=== PATIENT | female | born 2000 | race Caucasian/White ===

== ENCOUNTER → 2023-08-14 07:45 | Outpatient (CLI) | payer BC, SELFPAY ==
--- NOTE | ~2023-08-14 | US_ITS ---
EXAMINATION: US OB transvaginal DATE: 08/14/2023 09:54 INDICATION: Gestational dating TECHNIQUE: Real-time transvaginal obstetric ultrasound. FINDINGS: No prior studies for comparison. The uterus measures 8.8 x 5.1 x 6.1 cm. There is an intrauterine gestational sac, with pole francoise ntified. The crown rump length measures 1.56 cm, which correlates with a estimated gestational age o f 8 weeks 0 days. heart tones are identified measuring 154 BPM. There is a small subchorionic hemorrhage measuring 5 x 4 x 4 mm. There is a right ovarian cyst measuring 1.5 cm. IMPRESSION: 1. SL IUP with an EGA of 8 weeks, 0 days (EDC by current ultrasound of 03/25/2024). 2: Small subchorionic hemorrhage. Reviewed, dictated and finalized at location B. IMPRESSION: 1. SL IUP with an EGA of 8 weeks, 0 days (EDC by current ultrasound of ). 2: Small subchorionic hemorrhage.
== END ==
PROVIDERS: PCP Registered Nurse; Visit Provider Registered Nurse
DX: Z36.9 Encounter for antenatal screening, unspecified (principal); Z3A.08 8 weeks gestation of pregnancy
CPT/HCPCS: 76817

== ENCOUNTER 2023-09-21 12:33 | Outpatient (CLI) | payer BC, SELFPAY ==
[2023-09-21 13:12] LABS: Hematocrit 39.7 % (37.0-47.0); Hemoglobin 13.7 g/dL (12.0-15.0); Mean Corpuscular HGB Conc 34.5 g/dl (32-36); Mean Corpuscular Hemoglobin 30.4 pg (26-34); Platelet Count Result 178 k/mm3 (150-375); Red Blood Count 4.51 M/mm3 (4.2-5.4); Red Cell Distribution Width 13.4 % (11.5-14.5); White Blood Count 10.7 K/mm3 (4.5-10.0)
[2023-09-21 13:17] LABS: Appearance Urine Cloudy (Clear); Bacteria Urine 4+ /hpf; Bilirubin Urine Negative (Negative); Blood Urine Negative (Negative); Color Urine Dark Yellow (Yellow); Glucose Urine UA Negative (Negative); Ketones Urine Negative (Negative); Leukocyte Esterase Ur 3+ LEU/UL (NEGATIVE); Nitrate Urine Negative (Negative); Protein Urine Negative (Negative); RBC Urine 0-2 /hpf (0-2); Squamous Epithelial Cell Urine Moderate /hpf (Few); WBC Urine 21-50 /hpf (0-3)
[2023-09-21 13:18] LABS: Add Urine Microscopic? YES
[2023-09-21 13:54] LABS: Thyroid Stimulating Hormone 0.653 uIU/mL (0.465-4.680)
[2023-09-21 14:02] LABS: Hepatitis B Surface Antigen Negative (Negative); Rubella IgG Antibody 61.9 IU/ML
[2023-09-21 14:03] LABS: HIV 1/2 Ab P24 Ag Result Negative (Negative)
[2023-09-21 14:15] LABS: Hepatitis C Virus Antibody Negative (Negative)
[2023-09-22 15:18] LABS: Rapid Plasma Reagin Non-Reactive (NonReactive)
[2023-09-26 13:12] LABS: Hemoglobin 13.8 g/dL (11.7-15.5); MCH 31.2 pg (27.0-33.0); MCV 92.8 fL (80.0-100.0); RDW 13.5 % (11.0-15.0); Red Blood Cell Count 4.42 Mill/uL (3.80-5.10)
== END 2023-09-21 12:34 | disposition home or self-care (01) ==
PROVIDERS: PCP Registered Nurse; Visit Provider Obstetrics & Gynecology
DX: Z34.91 Encounter for supervision of normal pregnancy, unspecified, first trimester (principal); Z3A.00 Weeks of gestation of pregnancy not specified
CPT/HCPCS: 36415; 81001; 83021; 84443; 85027; 86592; 86703; 86762; 86787; 86803; 86850; 86900; 86901; 87086; 87088; 87340; G0432

== ENCOUNTER 2023-12-25 13:32 | Outpatient (CLI) | payer BC, SELFPAY ==
[2023-12-25 15:01] LABS: Basophils Percent Auto 0.2 % (0.2-1.2); Eosinophils Absolute Auto 0.1 K/mm3 (0-0.3); Eosinophils Percent Auto 0.8 % (0-4.4); Hematocrit 35.6 % (37.0-47.0); Hemoglobin 12.3 g/dL (12.0-15.0); Immature Granulocyte Percent A 0.8 % (0-0.5); Lymphocytes Absolute Auto 1.36 K/mm3 (0.9-3.2); Lymphocytes Percent Auto 10.3 % (18.3-44.2); Mean Corpuscular HGB Conc 34.6 g/dl (32-36); Mean Corpuscular Hemoglobin 31.6 pg (26-34); Mean Corpuscular Volume 91.5 fl (80-100); Mean Platelet Volume 10.7 fl (7.4-10.4); Monocytes Absolute Auto 0.7 K/mm3 (0.1-0.6); Monocytes Percent Auto 4.9 % (2.6-8.5); Platelet Count Result 149 k/mm3 (150-375); Red Blood Count 3.89 M/mm3 (4.2-5.4); Red Cell Distribution Width 13.3 % (11.5-14.5); White Blood Count 13.3 K/mm3 (4.5-10.0)
[2023-12-25 15:11] LABS: Glucose 1 Hour PP 50gm Dose 98 mg/dL
== END 2023-12-25 13:33 | disposition home or self-care (01) ==
LOC: ANHLAB 13:34
PROVIDERS: PCP Registered Nurse; Visit Provider Obstetrics & Gynecology
DX: Z34.02 Encounter for supervision of normal first pregnancy, second trimester (principal); Z3A.00 Weeks of gestation of pregnancy not specified
CPT/HCPCS: 36415; 82947; 85025

== ENCOUNTER 2024-02-05 15:28 | Outpatient (CLI) | payer BC, SELFPAY ==
[2024-02-05 16:13] LABS: Hematocrit 34.2 % (37.0-47.0); Hemoglobin 11.6 g/dL (12.0-15.0); Mean Corpuscular HGB Conc 33.9 g/dl (32-36); Mean Corpuscular Hemoglobin 31.3 pg (26-34); Mean Corpuscular Volume 92.2 fl (80-100); Mean Platelet Volume 11.2 fl (7.4-10.4); Platelet Count Result 146 k/mm3 (150-375); Red Blood Count 3.71 M/mm3 (4.2-5.4); Red Cell Distribution Width 14.5 % (11.5-14.5); White Blood Count 11.6 K/mm3 (4.5-10.0)
[2024-02-05 17:14] LABS: HIV 1/2 Ab P24 Ag Result Negative (Negative)
[2024-02-06 12:04] LABS: Rapid Plasma Reagin Non-Reactive (NonReactive)
== END 2024-02-05 15:29 | disposition home or self-care (01) ==
LOC: ANHLAB 15:29
PROVIDERS: PCP Registered Nurse; Visit Provider Nurse Practitioner Family
DX: Z34.90 Encounter for supervision of normal pregnancy, unspecified, unspecified trimester (principal); Z3A.00 Weeks of gestation of pregnancy not specified
CPT/HCPCS: 36415; 85027; 86592; 86703; G0432

== ENCOUNTER 2024-02-15 07:33 | Outpatient (CLI) | payer BC, SELFPAY ==
[2024-02-15 08:00] LABS: Glucose Fasting 94 mg/dL
[2024-02-15 09:51] LABS: Glucose 1 Hour 145 mg/dL
[2024-02-15 10:53] LABS: Glucose 2 Hour 141 mg/dL
[2024-02-15 11:42] LABS: Glucose 3 Hour 112 mg/dL
== END 2024-02-15 07:34 | disposition home or self-care (01) ==
LOC: ANHLAB 07:34
PROVIDERS: PCP Registered Nurse; Visit Provider Nurse Practitioner Family
DX: O36.60X0 Maternal care for excessive fetal growth, unspecified trimester, not applicable or unspecified (principal); Z3A.00 Weeks of gestation of pregnancy not specified
CPT/HCPCS: 36415; 82951; 82952

== ENCOUNTER 2024-03-20 17:02 | Inpatient (IN) | payer BC, SELFPAY ==
[2024-03-20] VITALS (21 sets, daily range): BP systolic 112–145; BP diastolic 61–128; PULSE 66–95; BMI 33.2
--- NOTE | 2024-03-20 17:52 | LDADM ---
This patient, Carito López, was admitted to Labor/Delivery/Recovery 105 on 03/20/24 at 17:02. Plans for labor, pain management and were discussed with patient. Patient/family oriented to hospital policies and general routines including ID bracelet, bed and alarms, visiting hours, pain management, procedures, bathroom and other care routines, personal items, smoking policy, room service/diet and guest tray routines, infant security routines, and visiting hours. Patient/Family are encouraged to report perceived risks to care and to ask questions if they do not understand what they are told or what they should do. See OBIX for further documentation.
[2024-03-20 18:10] LABS: Basophils Percent Auto 0.2 % (0.2-1.2); Eosinophils Absolute Auto 0.1 K/mm3 (0-0.3); Eosinophils Percent Auto 1.2 % (0-4.4); Hematocrit 35.9 % (37.0-47.0); Hemoglobin 12.4 g/dL (12.0-15.0); Immature Granulocyte Absolute 0.04 K/mm3 (0.00-0.031); Immature Granulocyte Percent A 0.4 % (0-0.5); Lymphocytes Absolute Auto 1.32 K/mm3 (0.9-3.2); Lymphocytes Percent Auto 11.8 % (18.3-44.2); Mean Corpuscular HGB Conc 34.5 g/dl (32-36); Mean Corpuscular Hemoglobin 30.8 pg (26-34); Mean Corpuscular Volume 89.3 fl (80-100); Mean Platelet Volume 11.7 fl (7.4-10.4); Monocytes Absolute Auto 0.7 K/mm3 (0.1-0.6); Monocytes Percent Auto 6.6 % (2.6-8.5); Neutrophils Percent Auto 79.8 % (45.5-73.1); Platelet Count Result 145 k/mm3 (150-375); Red Blood Count 4.02 M/mm3 (4.2-5.4); Red Cell Distribution Width 14.3 % (11.5-14.5); White Blood Count 11.2 K/mm3 (4.5-10.0)
[2024-03-20] MEDS: miSOPROStol 25 MCG TABLET 50 MCG VAGINAL ×2 (18:32→22:39)
--- NOTE | 2024-03-20 18:37 | WPDANESEPP ---
Anes - Eval Pre Procedure Procedure: labor epidural Date/Time: 03/20/24 18:37 Pre Op Diagnosis: IOL Patient Data Age: 23 Gender: F Height: 1.75 m Weight: 102 kg Last Vital Signs Pulse 91 03/20/24 17:59 BP 120/87 03/20/24 17:59 O2 Del Method Room Air 03/20/24 17:51 Allergies Allergy/AdvReac Type Severity Reaction Status Date / Time Penicillins Allergy Hives Verified 03/14/24 15:01 Sulfa (Sulfonamide Allergy Hives Verified 03/14/24 15:01 Antibiotics) Home Medications Medication Instructions Recorded Confirmed Type vitamins with calcium 1 tablet PO DAILY 08/10/23 03/07/24 History no.72-iron 29 mg-folic acid 1 mg tablet Laboratory Tests 03/20/24 17:23 WBC 11.2 H K/mm3 (4.5-10.0) RBC 4.02 L M/mm3 (4.2-5.4) Hgb 12.4 g/dL (12.0-15.0) Hct 35.9 L % (37.0-47.0) MCV 89.3 fl (80-100) MCH 30.8 pg (26-34) MCHC 34.5 g/dl (32-36) RDW 14.3 % (11.5-14.5) Plt Count 145 L k/mm3 (150-375) MPV 11.7 H fl (7.4-10.4) Immature Gran % (Auto) 0.4 % (0-0.5) Neut % (Auto) 79.8 H % (45.5-73.1) Lymph % (Auto) 11.8 L % (18.3-44.2) [place] % (Auto) 6.6 % (2.6-8.5) Eos % (Auto) 1.2 % (0-4.4) Baso % (Auto) 0.2 % (0.2-1.2) Lymph # (Auto) 1.32 K/mm3 (0.9-3.2) [place] # (Auto) 0.7 H K/mm3 (0.1-0.6) Eos # (Auto) 0.1 K/mm3 (0-0.3) Baso # (Auto) 0.0 K/mm3 (0.0-0.1) Abs Immat Gran (auto) 0.04 H K/mm3 (0.00-0.031) Absolute Neuts (auto) 9.0 H K/mm3 (1.3-6.7) Absolute Nucleated RBC 0.000 K/mm3 (0.0-0.012) Nucleated RBC % 0.0 % (0.0-0.2) RPR Pending Patient hx anesthesia problems: none Family hx anesthesia problems: none Results Review: All pre-operative results and documents have been reviewed as part of the pre-operative evaluation. [facility] Family History Family History Grandparent Hypertension Heart disease Grandparent Heart disease Social History Social History Smoking status: Never smoker Alcohol intake: former Substance use: never Do You Feel Safe in your Home?: Yes Lack of Transportation: No Lack of Food: Never True Current Housing: I Have Housing Concerned About Future Housing: No Difficulty Paying Gas/Electric Bills: No Difficulty Paying for Meds: No Currently Unemployed: No Education: Master's Degree or Higher Difficulty w/ Childcare or Family Care: No Gender identity (if verbalized by the patient): Female Sexual Orientation (if Verbalized by the Patient): Straight or Heterosexual Spiritual care concerns: No Agree to blood products: Yes Exam Day of Procedure 03/20/24 18:37 Patient weight: obese Heart: regular rate and rhythm Lungs: normal air movement Airway: Mallampati scale Neurological: alert and oriented
[2024-03-21] VITALS (227 sets, daily range): BP systolic 79–159; BP diastolic 40–105; PULSE 49–157; RESP 18; TEMP 36.3–37.1; O2SAT 87–100
[2024-03-21] MEDS: miSOPROStol 25 MCG TABLET 50 MCG VAGINAL (02:38)
[2024-03-21] MEDS: LACTATED RINGERS 1,000 ML 125 ML IV CONT ×3 (06:57→15:00)
[2024-03-21] MEDS: ONDANSETRON INJ 4 MG/2 ML VIAL IV PUSH (07:01)
[2024-03-21] MEDS: OXYTOCIN 30 UNITS/NS 500 ML 30 UNITS/500 ML BAG 6 UNITS IV CONT (07:24)
--- NOTE | 2024-03-21 12:47 | PM.IMHP ---
H&P: HPI History of Present Illness Date/Time: 03/21/24 12:47 Chief Complaint: Induction of labor Narrative: Here for medical induction of labor. She is 39 weeks with an EDC of 5/20 based on 8 week ultrasound which was not consistent with last menstrual period. course significant for LGA measurement on ultrasound she has been getting normal surveillance testing. Risks, benefits, and alternatives have been discussed and questions answered. Patient agrees to proceed with medical induction of labor. Review of Systems Review of Systems: All systems reviewed & are unremarkable except as noted in HPI and below Constitutional: Constitutional: Reports no additional constitutional complaints and Denies headache(s) Eyes: Eyes: Denies spots in vision ENT: Reports system reviewed and no additional complaints, except as documented and Denies headache(s) Cardiovascular: Cardiovascular: Denies chest pain and Denies dyspnea Respiratory: Respiratory: Denies dyspnea Gastrointestinal: Gastrointestinal: Reports no additional gastrointestinal complaints Genitourinary: Genitourinary: Reports amenorrhea Musculoskeletal: Musculoskeletal: Reports no additional musculoskeletal complaints Integumentary/Breasts: Skin/Breast: Denies breast mass and Denies rash Neurologic: Denies headache(s) Psychiatric: Psychiatric: Reports no additional psychiatric complaints [facility] Family History Family History Grandparent Hypertension Heart disease Grandparent Heart disease Social History Social History Smoking status: Never smoker Alcohol intake: former Substance use: never Do You Feel Safe in your Home?: Yes Lack of Transportation: No Lack of Food: Never True Current Housing: I Have Housing Concerned About Future Housing: No Difficulty Paying Gas/Electric Bills: No Difficulty Paying for Meds: No Currently Unemployed: No Education: Master's Degree or Higher Difficulty w/ Childcare or Family Care: No Gender identity (if verbalized by the patient): Female Sexual Orientation (if Verbalized by the Patient): Straight or Heterosexual Spiritual care concerns: No Agree to blood products: Yes Meds Home Medications and Allergies Home Medications Medication Instructions Recorded Confirmed Type vitamins with calcium 1 tablet PO DAILY 08/10/23 03/07/24 History no.72-iron 29 mg-folic acid 1 mg tablet Allergies Allergy/AdvReac Type Severity Reaction Status Date / Time Penicillins Allergy Hives Verified 03/14/24 15:01 Sulfa (Sulfonamide Allergy Hives Verified 03/14/24 15:01 Antibiotics) Vital Signs Vital Signs - 24 hr 03/20/24 17:51 03/20/24 17:59 03/20/24 18:38 Temperature Pulse Rate 91 85 Blood Pressure 120/87 134/82 Pulse Oximetry Oxygen Delivery Room Air 03/20/24 18:45 03/20/24 19:00 03/20/24 19:15 Temperature Pulse Rate 84 86 83 Blood Pressure 123/75 127/78 127/95 H Pulse Oximetry Oxygen Delivery 03/20/24 19:30 03/20/24 19:45 03/20/24 20:01 Temperature Pulse Rate 79 93 95 Blood Pressure 140/82 140/103 H 143/87 H Pulse Oximetry Oxygen Delivery 03/20/24 20:15 03/20/24 20:30 03/20/24 20:45 Temperature Pulse Rate 89 84 83 Blood Pressure 126/89 141/128 H 132/93 H Pulse Oximetry Oxygen Delivery 03/20/24 21:00 03/20/24 21:15 03/20/24 21:30 Temperature Pulse Rate 84 79 73 Blood Pressure 145/97 H 141/86 H 138/87 Pulse Oximetry Oxygen Delivery 03/20/24 21:46 03/20/24 22:00 03/20/24 22:15 Temperature Pulse Rate 78 73 71 Blood Pressure 121/67 117/64 115/65 Pulse Oximetry Oxygen Delivery 03/20/24 22:30 03/20/24 23:00 03/20/24 23:30 Temperature Pulse Rate 79 73 75 Blood Pressure 121/69 112/67 123/78 Pulse Oximetry Oxygen Delivery 03/20/24 23
--- NOTE | 2024-03-21 12:47 | WPDHPUPDATE1 ---
History and Physical Update Update Date/Time: 03/21/24 12:47 History and Physical has been reviewed, including an updated exam of the patient. There are NO changes in the patient's condition. Risks, benefits, and alternatives have been discussed and questions answered. Patient agrees to proceed with procedure.
--- NOTE | 2024-03-21 12:52 | P.PNOB_ITS ---
OB - PN: Subj Subjective Date/time seen: 03/21/24 0845 Interval history: 145, Cat 1, irreg ctx, cervix 2/80/-2, AROM clear. Continue pitocin. OB - PN: Obj Data Labs 03/20/24 17:23 Labs: Laboratory Results - last 24 hr 03/20/24 17:23 WBC 11.2 H RBC 4.02 L Hgb 12.4 Hct 35.9 L MCV 89.3 MCH 30.8 MCHC 34.5 RDW 14.3 Plt Count 145 L MPV 11.7 H Immature Gran % (Auto) 0.4 Neut % (Auto) 79.8 H Lymph % (Auto) 11.8 L [place] % (Auto) 6.6 Eos % (Auto) 1.2 Baso % (Auto) 0.2 Lymph # (Auto) 1.32 [place] # (Auto) 0.7 H Eos # (Auto) 0.1 Baso # (Auto) 0.0 Abs Immat Gran (auto) 0.04 H Absolute Neuts (auto) 9.0 H Absolute Nucleated RBC 0.000 Nucleated RBC % 0.0 Blood Type B Positive Antibody Screen Negative OB - PN A/P Time Spent With Patient Time: Total time spent is greater than 50% in coordination of care (as documented) at patient's floor/unit and/or counseling patient:
[2024-03-21 17:10] LABS: Rapid Plasma Reagin Non-Reactive (NonReactive)
[2024-03-21] MEDS: OXYTOCIN 30 UNITS/NS 500 ML 30 UNITS/500 ML BAG 999 UNITS IV CONT (19:35)
--- NOTE | 2024-03-21 19:54 | PM.OBPRVD ---
OB - Vaginal Delivery Note Procedure Delivery date: 03/21/24 Events: Other (large for gestational age) Induction method: Per Misoprostol Protocol Delivery augmentation: Rupture of Membranes and Pitocin Delivery monitor: External FHT and Internal Uterine Route of delivery: Episiotomy description: Left Mediolateral Delivery repair: vicryl (3.0 vicryl) Specimen: No Quantitative Blood Loss (ml): 200 Anesthesia type: Epidural Disposition: Floor Complications: No immediate complications Narrative: She was admitted on 03/20/24 for MIL. She had 3 doses of cytotec and Pitocin was started. The morning of 03/21/24 she had AROM. She progressed into active labor. Epidural placed upon request. She dilated to complete. She pushed less than 30 minutes. The introitus was tight and decision made to perform left mediolateral episiotomy. 's head delivered and nose and mouth suctioned with bulb, she pushed and the anterior shoulder was delivered. The rest of the infant was delivered. She was vigorously crying upon delivery and placed on maternal abdomen. Terminal meconium noted. Delayed cord clamping until cord apulsatile for a minute. Cord doubly clamped and cut and taken to warmer per patient request. Pitocin started. Placenta delivered with trailing membranes. Spontaneous and intact. Episiotomy repaired with 3.0 vicryl. Patient tolerated procedure well. Baby Date of : 03/21/24 Time of : 19:29 Weeks of gestation at delivery: 39 Infant gender: Female Weight (pounds): 8 Weight (ounces): 12 presentation: vertex position: Left Occiput Anterior Placenta delivery description: Spontaneous Cord Vessel Description: 3 Vessels, Clamped/Cut and Delayed Cord Clamping score one minute: 8 score five minutes: 9
[2024-03-21] MEDS: OXYTOCIN 30 UNITS/NS 500 ML 30 UNITS/500 ML BAG 125 UNITS IV CONT (20:01)
--- NOTE | 2024-03-21 22:00 | OBPPTRN ---
Patient transferred to post room #280 via wheelchair. Support person present. Oriented to unit, room, information board, rooming in, admission packet and security measures. Patient verbalizes understanding.
[2024-03-22 04:00] VITALS: BP 116/67; PULSE 78; RESP 18; TEMP 37.7; O2SAT 99
[2024-03-22 05:32] LABS: Hematocrit 33.5 % (37.0-47.0); Hemoglobin 11.1 g/dL (12.0-15.0)
[2024-03-22 07:20] VITALS: BP 126/77; PULSE 69; RESP 16; TEMP 36.4; O2SAT 100
--- NOTE | 2024-03-22 07:24 | PM.OBDSVD ---
DS: Admitting Diagnosis Discharge Date 03/23/24 Admitting Diagnosis Induction of labor DS: Discharge Diagnosis Discharge Diagnosis (1) Vaginal delivery: Code(s): O80 - Encounter for full-term uncomplicated delivery Status: Acute OB - DS: Summary Hospital Course Hospital Course: She was admitted for medical induction of labor. She had an uncomplicated vaginal delivery. She did well . She had adequate pain control, ambulating well, tolerating regular diet. She was discharged to home on day 2. OB Procedures : NST and Ultrasound OB Procedures Intrapartum: Spontaneous Vag Delivery and Episiotomy OB Procedures: : None Peripartum Data Infant Delivery Method: Natural Vaginal Episiotomy description: Left Mediolateral complications: none Status at Discharge Functional status at discharge: independent ambulation Time Spent with Patient Time attestation: Total time spent providing and/or coordinating discharge services: Exam Const: General: cooperative Orientation/consciousness: oriented to person, oriented to place and oriented to time HENMT: Face/Nose/Sinus: Normal external nose present Eyes: General: appearance normal, both eyes and all related structures Resp: Effort & Inspection: normal respiratory effort GI: Inspection: normal to inspection Skin: General skin exam: normal color Neuro: General: oriented to person, oriented to place and oriented to time Extrem: General: normal to inspection and no calf tenderness Psych: Appearance: grossly normal Mental Status: mental status grossly normal DS: Data Data Completed and Pending Labs on day of discharge: Labs from last 24 hours 03/22/24 03/20/24 04:10 17:23 Hgb 11.1 L Hct 33.5 L RPR Non-reactive Discharge Plan Discharge Attending physician on discharge: Dev Collier Consulting providers: Janette Wheeler Discharging Clinician: Mallory Denney Patient Disposition: Home, Self-Care Activity: may shower, no straining and pelvic rest Diet: regular Discharge Instructions: Education: Mom and Baby Guide Given to: Mother Follow-Up: Call your delivering provider's office for an appointment to be seen in: 3 weeks Mom and baby should come to the [facility] for the follow-up appointment. Appointment Date/Time: March 25, 2024 at 9:00 am What to expect at your follow-up visit: Physical Assessment Call [phone] if you are unable to keep your appointment time. BREAST CARE: * Wear a snug supportive bra. * For engorgement discomfort: Breast Feeding: * Apply warm moist washcloths * Express milk as needed to relieve engorgement * Wear loose clothing Bottle Feeding: * May apply ice packs * For sore nipples: * Identify correct latch-on * Apply warm moist washcloths before and after nursing * Air dry nipples after nursing * May apply Lansinoh cream to nipples EPISIOTOMY/PERINEAL CARE: * Until bleeding stops, use your hemanth bottle after urinating * Change your pad frequently throughout the day * You may take sitz baths several times a day (fill your bathtub with warm water and soak for 20 minutes.) Do NOT bathe in the water * No tub baths until seen by your physician - You may shower ACTIVITY: * Rest as much as possible. * Do not exercise or lift anything heavier than your baby (such as laundry or other children.) * Avoid stairs or driving as much as possible. * Do not put anything into the vagina. No douching, tampons, or sexual activity until seen by physician. NOTIFY PHYSICIAN IF YOU HAVE ANY QUESTIONS OR IF ANY OF THE FOLLOWING SYMPTOMS OCCUR: * If your episiotomy or incision becomes red, swollen, or more painful than what you have experienced in the hospital. * If your vaginal bleeding becomes foul smelling. * If your vaginal bleeding becomes
--- NOTE | 2024-03-22 08:08 | WPDANLDPN2 ---
Anes-Prog Note L&D Date/Time: 03/22/24 08:08 Comfortable throughout: labor and delivery Neuraxial method: epidural Neuro status: Neuro function grossly intact. Cardiovascular status: normal Respiratory status: normal Airway patency: baseline Mental status: baseline Post-Op hydration status: normal Vital Signs: Last Vital Signs Temp 37.7 C H 03/22/24 04:00 Pulse 78 03/22/24 04:00 Resp 18 03/22/24 04:00 BP 116/67 03/22/24 04:00 Pulse Ox 99 03/22/24 04:00 O2 Del Method Room Air 03/22/24 04:00 Pain score (VAS): 0 I/O: Intake & Output 03/21/24 03/22/24 03/22/24 23:59 07:59 15:59 Output Total 75 Balance -75 Patient feedback: Patient satisfied with anesthetic care.
--- NOTE | 2024-03-22 09:55 | PM.OBPNVD ---
OB - PN: Subj Subjective Date/time seen: 03/22/24 09:55 Patient comments: pain well controlled, tolerating diet and other (Decreasing lochia.) baby status: doing well and nursing well [place] feeding status: exclusively breast feeding OB - PN: Obj Data Labs 03/22/24 04:10 Labs: Laboratory Results - last 24 hr 03/20/24 03/22/24 17:23 04:10 Hgb 11.1 L Hct 33.5 L RPR Non-reactive OB - PN A/P Plan day: 1 Plan: routine care Comments: Patient doing well. Time Spent With Patient Time: Total time spent is greater than 50% in coordination of care (as documented) at patient's floor/unit and/or counseling patient: Exam Psych: Affect: normal affect Other: Abd: fundus firm below umbilicus, nontender Perineum: healing Ext: nontender
--- NOTE | 2024-03-22 11:17 | PC.NURSE ---
[id number] Introductions were made, then consulted with patient to assess needs related to . Mother led the conversation with her?plans to feed?her infant, the?experience so far with nursery RN putting infant to the breast at the first feeding. Encouraged understanding of the benefits of skin to skin (demonstrating unwrapping and placing upright on her chest), stimulating with massage touch, changing positions to encourage wakefulness, how to watch for early feeding cues, responsive feeding, feeding on demand (aiming for 8-12 times in 24 hours, about every 2-3 hours), milk production, hand expression, building/maintaining a milk supply, duration of feeding, signs of adequate intake/output and how to record on the feeding sheet. Mother works well with her infant with encouragement and education. Parents voiced understanding of skin to skin, stimulating with massage touch, responsive feedings, hand expressed colostrum, talking to infant to encourage if it has been 2 -2.5 hours since the start of the last , to call if infant does not latch, or if there is discomfort with . Resources used for education were facilitated with the visual educational handouts/ tool. Inpatient/outpatient resources provided with feeding sheet, name written on the communication board, and the mom/baby guide. Parents voiced understanding of information, demonstrated learning and will call if there is a request for assistance. Reported to the Primary RN. [phone] We reviewed working with the infant, supporting breast, protecting her nipples with an optimal deep latch, good positioning, good hand washing and hand expression. Encouraged understanding the benefits of skin to skin, responding to feeding cues what to expect with in the first 24 hours (approximately 1-3 hours), duration of feedings with watching for swallowing, milk production, intake/output feeding sheet and signs of adequate intake encouraging swallowing at the breast. Reviewed positioning and alignment, supporting breast, off-centered (asymmetrical latch) and leading with the chin with big, open, wide gape. is not interested in latching at this time. finger fed 1/2 tsp of EBM and placed [id number], upright on mothers chest/breast. Parents voiced understanding of the education shared and we will see what infant does in the next hour or two at 15 HOL. Reported to the Primary RN.
--- NOTE | 2024-03-22 13:48 | PC.NURSE ---
1235 - Purposefully rounded to assess for needs. parent is in the shower with her mother assisting as father of baby is holding infant. Maternal mother has a good history of her two children and is very supportive of her daughter's decision to breastfeed her . Offer of services given along with encouragement to call if needed. Parent voiced understanding of information.
--- NOTE | 2024-03-22 15:19 | PC.NURSE ---
[id number] Consulted with patient to assess needs related to after patient requested. Discussed with mother her successes, concerns and any questions she has and parents shared that their will not latch. Infant is in the bassinet alert and awake. Parents give teach back on understanding feeding cues, responding to feeding cues and doing [id number]. We reviewed working with the infant, supporting breast, protecting her nipples with an optimal deep latch, good positioning, and good hand washing. We hand expressed breast milk and finger fed the milk to as she did not attempt to lap it out of the spoon. Reviewed positioning and alignment, supporting breast, off-centered (asymmetrical latch) and leading with the chin with big, open, wide gape. latched optimally to the left breast in football position. Education given to the parents of how to visualize the suckling (with good rocking jaw motion) swallows (dropping of the lower jaw) and how to listen for drinking at the breast (the ka sound). The was able to maintain latch without discomfort to mother. Encouraged skin to skin, responding to feeding cues, frequencies of feeding 8-12 times in 24 hours (approximately 2-3 hours), duration of feedings, milk production, intake/output feeding sheet and signs of adequate intake encouraging swallowing at the breast. Nipple care reviewed with optimal latch, good positioning and using clean hands when touching her breast. Resources used to facilitate learning were used from the visual handouts/ tool/mom and baby guide. Parents voiced understanding of the education shared, to call for assistance if the infant does not latch or if there is discomfort with . Reported to the Primary RN.
[2024-03-22 19:44] VITALS: BP 118/73; PULSE 72; RESP 16; TEMP 36.4; O2SAT 99
[2024-03-22] MEDS: IBUPROFEN 600 MG TABLET PO (19:55)
[2024-03-23 08:35] VITALS: BP 116/69; PULSE 70; RESP 16; TEMP 36.6; O2SAT 70
[2024-03-23] MEDS: MULTIVIT/MIN/PREN/FOL AC/IRON TABLET 1 TAB PO (08:36)
--- NOTE | 2024-03-23 08:48 | PM.OBDSVD ---
DS: Admitting Diagnosis Discharge Date 03/23/24 Admitting Diagnosis Induction of labor DS: Discharge Diagnosis Discharge Diagnosis (1) Vaginal delivery: Code(s): O80 - Encounter for full-term uncomplicated delivery Status: Acute OB - DS: Summary Hospital Course Hospital Course: She was admitted for medical induction of labor. She had an uncomplicated vaginal delivery. She did well . She had adequate pain control, ambulating well, tolerating regular diet. She was discharged to home on day 2. OB Procedures : Ultrasound OB Procedures Intrapartum: Spontaneous Vag Delivery OB Procedures: : None Peripartum Data Delivery Method: Natural Vaginal Episiotomy description: Left Mediolateral complications: none Anatone 1: Gender: Female Disposition of : home Status at Discharge Functional status at discharge: independent ambulation Overall status at discharge: patient is back to baseline Time Spent with Patient Time attestation: Total time spent providing and/or coordinating discharge services: Time spent: Less than 30 minutes Exam Const: General: cooperative, healthy appearing, comfortable and no acute distress Orientation/consciousness: patient oriented x3 Resp: Effort & Inspection: normal respiratory effort Auscultation: clear to auscultation bilaterally Cardio: Rate: regular rate GI: Inspection: non-distended GI Palp: No abdominal tenderness and Yes Soft to palpation Auscultation: normal bowel sounds : Other: fundus firm Skin: General skin exam: normal color Neuro: General: patient oriented x3 Extrem: General: normal to inspection Psych: Appearance: grossly normal Affect: normal affect Attitude: cooperative Discharge Plan Discharge Attending physician on discharge: Dev Collier Consulting providers: Janette Wheeler Discharging Clinician: Mallory Denney Patient Disposition: Home, Self-Care Activity: may shower, no straining and pelvic rest Diet: regular Discharge Instructions: Education: Mom and Baby Guide Given to: Mother Follow-Up: Call your delivering provider's office for an appointment to be seen in: 3 weeks Mom and baby should come to the [facility] for the follow-up appointment. Appointment Date/Time: March 25, 2024 at 9:00 am What to expect at your follow-up visit: Physical Assessment Call [phone] if you are unable to keep your appointment time. BREAST CARE: * Wear a snug supportive bra. * For engorgement discomfort: Breast Feeding: * Apply warm moist washcloths * Express milk as needed to relieve engorgement * Wear loose clothing Bottle Feeding: * May apply ice packs * For sore nipples: * Identify correct latch-on * Apply warm moist washcloths before and after nursing * Air dry nipples after nursing * May apply Lansinoh cream to nipples EPISIOTOMY/PERINEAL CARE: * Until bleeding stops, use your hemanth bottle after urinating * Change your pad frequently throughout the day * You may take sitz baths several times a day (fill your bathtub with warm water and soak for 20 minutes.) Do NOT bathe in the water * No tub baths until seen by your physician - You may shower ACTIVITY: * Rest as much as possible. * Do not exercise or lift anything heavier than your baby (such as laundry or other children.) * Avoid stairs or driving as much as possible. * Do not put anything into the vagina. No douching, tampons, or sexual activity until seen by physician. NOTIFY PHYSICIAN IF YOU HAVE ANY QUESTIONS OR IF ANY OF THE FOLLOWING SYMPTOMS OCCUR: * If your episiotomy or incision becomes red, swollen, or more painful than what you have experienced in the hospital. * If your vaginal bleeding becomes foul smelling. * If your vaginal bleeding becomes more heavy than a pe
[2024-03-25 09:05] VITALS: BP 119/77; PULSE 79; RESP 20; TEMP 36.6; O2SAT 99
== END 2024-03-23 11:27 | disposition home or self-care (01) | DRG 794 ==
LOC: ANHOB2 03-23 09:07 → ANHLDR 03-26 06:38 → ANHOB2 03-26 06:38
PROVIDERS: Admitting Provider Obstetrics & Gynecology; PCP Registered Nurse; Visit Provider Obstetrics & Gynecology
DX: P08.1 Other heavy for gestational age newborn (principal); Z37.0 Single live birth; Z3A.39 39 weeks gestation of pregnancy
CPT/HCPCS: 36415; 85014; 85018; 85025; 86592; 86850; 86900; 86901; A9270; J2405; J2590; J2795; J7120